=== PATIENT | male | born 1990 | race African-American/Black ===

== ENCOUNTER 2020-08-07 22:18 | Emergency (ER) | payer SELFPAY | END 2020-08-07 23:37 | LOC: ERS 22:18 | DX: Z02.89 Encounter for other administrative examinations (principal) | CPT/HCPCS: 36416; 99283 ==

== ENCOUNTER 2023-09-18 13:13 | Emergency (ER) | payer OTHER, SELFPAY ==
[2023-09-18] MEDS ORDERED: Lidocaine 1% PF 5 ML VIAL ONE (14:40)
[2023-09-18] MEDS ORDERED: Boostrix 0.5 ML (Tdap) VIAL (>/=7 yrs of age) ONE (15:30)
[2023-09-18] MEDS ORDERED: Bacitracin 1 PK ONE (15:33)
[2023-09-18] MEDS ORDERED: Acetaminophen 500 MG TAB ONE (15:33)
== END 2023-09-18 15:42 ==
LOC: ERS 13:13 → EEVIPCON 13:13 → ERS 15:42
DX: S01.511A Laceration without foreign body of lip, initial encounter (principal); S03.2XXA Dislocation of tooth, initial encounter; W01.0XXA Fall on same level from slipping, tripping and stumbling without subsequent striking against object, initial encounter; Y93.89 Activity, other specified; Y92.143 Cell of prison as the place of occurrence of the external cause; Z23 Encounter for immunization; Z55.6 Problems related to health literacy
CPT/HCPCS: 40650; 90471; 90715